=== PATIENT | female | born 1940 ===

== ENCOUNTER 2017-10-12 14:54 | Emergency (ER) | payer MEDICARE, MEDICAID ==
--- NOTE | 2017-10-12 15:34 | ED PDOC ---
Syncope/Near Syncope/Dizziness Time Seen by Provider: 10/12/17 15:02 Chief Complaint (Nursing): Dizziness/Lightheaded Chief Complaint (Provider): Dizzines History Per: Patient History/Exam Limitations: no limitations Onset/Duration Of Symptoms: Days (1 day ago) Current Symptoms Are (Timing): Still Present Additional Complaint(s): 77 y/o female with past medical history of hypertension, brought in by son, presents to the ED complaining of dizziness, onset of 1 day ago. Patient reports of having two episodes where she reports of feeling extremely dizzy and off balance. Patient denies any headache, weakness, chest pain, or shortness of breath. The patient also states that she had faced similar symptoms 3 years ago. Of note, the patient does not drink or smoke. pcp: Vandana Villanueva Past Medical History Reviewed: Historical Data, Nursing Documentation, Vital Signs Vital Signs: Last Vital Signs Temp 97.2 F L 10/12/17 14:57 Pulse 86 10/12/17 14:57 Resp 19 10/12/17 14:57 BP 156/89 H 10/12/17 14:57 Pulse Ox 98 10/12/17 14:57 - Medical History PMH: HTN - Surgical History Surgical History: No Surg Hx - Family History Family History: States: Unknown Family Hx - Living Arrangements Living Arrangements: With Family - Social History Current smoker - smoking cessation education provided: No Alcohol: None Drugs: Denies - Home Medications Home Medications: Ambulatory Orders Medication Instructions Recorded Meclizine [Meclizine*] 25 mg PO Q6 PRN #20 tab 10/12/17 - Allergies Allergies/Adverse Reactions: Allergies Allergy/AdvReac Type Severity Reaction Status Date / Time No Known Allergies Allergy Verified 10/12/17 15:00 Review of Systems ROS Statement: Except As Marked, All Systems Reviewed And Found Negative Constitutional: Negative for: Weakness Cardiovascular: Negative for: Chest Pain Respiratory: Negative for: Shortness of Breath Neurological: Positive for: Dizziness. Negative for: Headache Physical Exam - Reviewed Nursing Documentation Reviewed: Yes Vital Signs Reviewed: Yes - Physical Exam Appears: Positive for: Non-toxic, No Acute Distress Head Exam: Positive for: ATRAUMATIC, NORMOCEPHALIC Skin: Positive for: Normal Color, Warm, Dry Eye Exam: Positive for: Normal appearance, EOMI, PERRL. Negative for: Nystagmus ENT: Positive for: Normal ENT Inspection Neck: Positive for: Normal, Painless ROM Cardiovascular/Chest: Positive for: Regular Rate, Rhythm. Negative for: Murmur Respiratory: Positive for: Normal Breath Sounds. Negative for: Respiratory Distress Gastrointestinal/Abdominal: Positive for: Normal Exam, Soft. Negative for: Tenderness Back: Positive for: Normal Inspection Extremity: Positive for: Normal ROM. 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 Negative for: Motor/Sensory Deficits, Aphasia, Facial Droop - Laboratory Results Result Diagrams: 10/12/17 15:46 10/12/17 15:46 - ECG O2 Sat by Pulse Oximetry: 98 (RA) Pulse Ox Interpretation: Normal - Progress Re-evaluation Time: 17:46 Condition: Improved Medical Decision Making Medical Decision Making: Time: --15:24 Impression: --77 yo female with Vertigo Plan: --Head CT w/o contrast --EKG --Labs --Chest X-ray --Antivert 50mg PO --Glucose, Blood, POC --Orthostatic Blood Pressure --Urinalysis Accession No. : [id number] Patient Name / ID : SHARMILA PERRIN / [id number] Exam Date : 10/12/2017 16:02:04 ( Approved ) Study Comment : Sex / Age : F / 77Y Creator : Jose De Luna MD Dictator : Jose De Luna MD Porcelain Slusher : Flower Grower : Jose De Luna MD Approver2 : Report Date : 10/12/2017 16:55:52 My Comment : PROCEDURE: CT HEAD WITHOUT CONTRAST. HISTORY: Vertigo COMPARISON: None available. TECHNIQUE: Axial computed tomography images were obtained through the head/brain without intravenous contrast. Radiation dose: Total exam DLP = 1249.49 mGy-cm. This CT exam was performed using one or more of the following dose reduction techniques: Automated exposure control, adjustment of the mA and/or kV according to patient size, and/or use of iterative reconstruction technique. FINDINGS: HEMORRHAGE: No intracranial hemorrhage. BRAIN: The lay-white matter differentiation is well preserved. There is no mass effect or definitive edema pattern appreciate including the cortex. There is expansion of the ventriculosulcal and cisternal spaces however in a pattern most compatible with diffuse cerebral atrophy. No suspicious extra-axial fluid collection is identified in the midline brain anatomy appears grossly nonfocal as imaged. VENTRICLES: Unremarkable. No hydrocephalus. CALVARIUM: Unremarkable. PARANASAL SINUSES: Unremarkable as visualized. No significant inflammatory changes. MASTOID AIR CELLS: Unremarkable as visualized. No inflammatory changes. OTHER FINDINGS: None. IMPRESSION: No definite acute intracranial findings by standard CT criteria. Limited diffuse cerebral atrophy appreciated. There is no mass effect or parenchymal edema appreciated. Follow-up CT or MRI may be performed if clinically warranted. --18:04 Provider has given the patient a copy of their EKG report so they may give it to their primary care provider tomorrow. Scribe Attestation: Documented by Domingo Velasquez acting as a scribe for Megan Mcclendon MD. Disposition - Clinical Impression Clinical Impression: Vertigo - Patient ED Disposition Is Patient to be Admitted: No - Disposition Disposition: Routine/Home Disposition Time: 17:47 Condition: IMPROVED Additional Instructions: FOLLOW-UP WITH PMD WITHIN 2 DAYS FOR REEVALUATION. Prescriptions: Meclizine [Meclizine*] 25 mg PO Q6 PRN #20 tab PRN Reason: Dizziness Instructions: Vertigo (ED) Forms: [employer] (Australian) Print Language: MOHAWK
[2017-10-12 15:55] LABS: BASO # 0.1 K/uL (0.0-0.2); BASO % 0.7 % (0.0-2.0); EOS # 0.2 K/uL (0.0-0.7); EOS % 2.6 % (0.0-4.0); HEMATOCRIT 37.6 % (34.0-47.0); LYMPH # 2.6 K/uL (1.0-4.3); LYMPH % 36.5 % (20.0-40.0); MEAN CELL VOLUME 92.2 fl (81.0-99.0); MEAN CORPUSCULAR HEMOGLOBIN 30.4 pg (27.0-31.0); MONO # 0.9 K/uL (0.0-0.8); MONO % 12.5 % (0.0-10.0); NEUT # 3.4 K/uL (1.8-7.0); NEUT % 47.7 % (50.0-75.0); NRBC % 0.1 % (0.0-0.0); RED CELL DISTRIBUTION WIDTH 14.6 % (11.5-14.5); WHITE BLOOD COUNT 7.2 K/uL (4.8-10.8)
[2017-10-12 15:56] LABS: POTASSIUM 3.7 MMOL/L (3.6-5.0)
--- NOTE | 2017-10-12 16:15 | RAD ---
HISTORY: Dizziness COMPARISON: No prior. TECHNIQUE: Chest PA and lateral FINDINGS: LUNGS: No active pulmonary disease. PLEURA: No significant pleural effusion identified. No pneumothorax apparent. CARDIOVASCULAR: Cardiomegaly. No pulmonary vascular derangement identified. OSSEOUS STRUCTURES: No significant abnormalities. VISUALIZED UPPER ABDOMEN: Normal. OTHER FINDINGS: Elevated left hemidiaphragm identified. IMPRESSION: Cardiomegaly. No acute infiltrate. Elevated left hemidiaphragm noted.
[2017-10-12 16:22] LABS: ALB/GLOB RATIO 1.4 (1.0-2.1); BILIRUBIN,TOTAL 0.5 mg/dl (0.2-1.3); CALCIUM 9.6 mg/dL (8.4-10.2); TOTAL PROTEIN 7.3 G/DL (6.3-8.2)
--- NOTE | 2017-10-12 16:57 | CT ---
PROCEDURE: CT HEAD WITHOUT CONTRAST. HISTORY: Vertigo COMPARISON: None available. TECHNIQUE: Axial computed tomography images were obtained through the head/brain without intravenous contrast. Radiation dose: Total exam DLP = 1249.49 mGy-cm. This CT exam was performed using one or more of the following dose reduction techniques: Automated exposure control, adjustment of the mA and/or kV according to patient size, and/or use of iterative reconstruction technique. FINDINGS: HEMORRHAGE: No intracranial hemorrhage. BRAIN: The lay-white matter differentiation is well preserved. There is no mass effect or definitive edema pattern appreciate including the cortex. There is expansion of the ventriculosulcal and cisternal spaces however in a pattern most compatible with diffuse cerebral atrophy. No suspicious extra-axial fluid collection is identified in the midline brain anatomy appears grossly nonfocal as imaged. VENTRICLES: Unremarkable. No hydrocephalus. CALVARIUM: Unremarkable. PARANASAL SINUSES: Unremarkable as visualized. No significant inflammatory changes. MASTOID AIR CELLS: Unremarkable as visualized. No inflammatory changes. OTHER FINDINGS: None. IMPRESSION: No definite acute intracranial findings by standard CT criteria. Limited diffuse cerebral atrophy appreciated. There is no mass effect or parenchymal edema appreciated. Follow-up CT or MRI may be performed if clinically warranted.
[2017-10-12 17:01] LABS: RBC URINE 3 /hpf (0-3); URINE BACTERIA RARE (<OCC); URINE BILIRUBIN NEGATIVE (NEGATIVE); URINE BLOOD NEGATIVE (NEGATIVE); URINE COLOR YELLOW (YELLOW); URINE GLUCOSE (UA) NEG (Normal); URINE KETONE NEGATIVE (NEGATIVE); URINE LEUKOCYTE ESTERASE TRACE Leu/uL (Negative); URINE PROTEIN NEGATIVE (NEGATIVE); URINE UROBILINOGEN 0.2-1.0 mg/dL (0.2-1.0); WBC URINE 5 /hpf (0-5)
[2017-10-12 17:52] VITALS: BP 132/79; PULSE 76; RESP 16; TEMP 98
[2017-10-12 18:08] VITALS: O2SAT 98
--- NOTE | 2017-10-15 12:00 | CARD ---
APPROVED REPORT EKG Measurement Heart [id number] [id number] <Conclusion> Normal sinus rhythm ST & T wave abnormality, consider anterolateral ischemia Abnormal ECG
== END 2017-10-12 18:20 | disposition home or self-care (01) ==
LOC: H.ER 14:54
DX: R42 Dizziness and giddiness (principal); I10 Essential (primary) hypertension

== ENCOUNTER 2017-11-01 10:13 | Emergency (ER) | payer MEDICARE, MEDICAID ==
[2017-11-01 10:36] VITALS: BMI 31.1
--- NOTE | 2017-11-01 11:18 | ED PDOC ---
Syncope/Near Syncope/Dizziness Time Seen by Provider: 11/01/17 10:24 Chief Complaint (Nursing): Dizziness/Lightheaded Chief Complaint (Provider): Vertigo/Fall History Per: Patient Additional Complaint(s): 77 yo female, PMH of Vertigo and HTN, presents to ED with complaints of dtr stated pt. suffered fr. vertigo and she had dizzy spells yesterday and fell onto right side, no Head injury, no LOC. c/o pain to rt. flank and upper quadrant abdomen w/ chest wall tightness . pain aggravated w/ deep breathing/ coughing. denies loc. no bruising noted. Past Medical History Reviewed: Nursing Documentation, Vital Signs Vital Signs: Last Vital Signs Temp 96.0 F L 11/01/17 10:36 Pulse 76 11/01/17 10:36 Resp 16 11/01/17 10:36 BP 151/77 H 11/01/17 10:36 Pulse Ox 100 11/01/17 10:36 - Medical History PMH: HTN - Family History Family History: States: Unknown Family Hx - Living Arrangements Living Arrangements: With Family - Social History Current smoker - smoking cessation education provided: No Alcohol: None Drugs: Denies - Home Medications Home Medications: Ambulatory Orders Medication Instructions Recorded Meclizine [Meclizine*] 25 mg PO Q6 PRN #20 tab 10/12/17 Methylprednisolone [Medrol Dose 4 mg PO DAILY #21 mg 11/01/17 Pack (21 tabs)] - Allergies Allergies/Adverse Reactions: Allergies Allergy/AdvReac Type Severity Reaction Status Date / Time No Known Allergies Allergy Verified 10/12/17 15:00 Review of Systems ROS Statement: Except As Marked, All Systems Reviewed And Found Negative Cardiovascular: Positive for: Chest Pain (wall) Gastrointestinal: Positive for: Abdominal Pain Neurological: Positive for: Dizziness (vertigo) Physical Exam - Reviewed Nursing Documentation Reviewed: Yes Vital Signs Reviewed: Yes - Physical Exam Appears: Positive for: Well, Non-toxic, No Acute Distress Head Exam: Positive for: ATRAUMATIC, NORMAL INSPECTION, NORMOCEPHALIC Skin: Positive for: Normal Color, Warm, DRY Eye Exam: Positive for: EOMI, Normal appearance, PERRL ENT: Positive for: Normal ENT Inspection Neck: Positive for: Normal, Painless ROM Cardiovascular/Chest: Positive for: Regular Rate, Rhythm. Negative for: Chest Non Tender (right chest wall tendenress no edema or ecchymosis, no crepitus) Respiratory: Positive for: Normal Breath Sounds Gastrointestinal/Abdominal: Positive for: Bowel Sounds, Soft, Tenderness (right flank pain and chest wall tendnress ) Back: Positive for: Normal Inspection Extremity: Positive for: Normal ROM Neurologic/Psych: Positive for: Alert, Oriented - Laboratory Results Result Diagrams: 11/01/17 11:20 11/01/17 11:20 - ECG O2 Sat by Pulse Oximetry: 100 Medical Decision Making Medical Decision Making: IV access established and diagnostics ordered Results discussed with Pt who demonstarted full understanding. Pt doing well on re-eval, declined analgesics. Stable for discharge home at this time Disposition - Clinical Impression Clinical Impression: Vertigo, Fall, Contusion - Patient ED Disposition Is Patient to be Admitted: No - Disposition Referrals: Kerry Rubin MD [Primary Care Provider] - Disposition: Routine/Home Disposition Time: 17:07 Condition: STABLE Prescriptions: Methylprednisolone [Medrol Dose Pack (21 tabs)] 4 mg PO DAILY #21 mg Instructions: Vertigo (ED), Fall Prevention (ED) Forms: [facility] [employer] (Lao) Print Language: GREEK
--- NOTE | 2017-11-01 11:49 | RAD ---
HISTORY: chest wall pain COMPARISON: 10/12/2017 FINDINGS: LUNGS: There is poor expiratory effort with crowding at the lung bases. Mild bibasilar subsegmental atelectasis is suspected. Minimal amount of congestion is not excluded. PLEURA: No significant pleural effusion identified, no pneumothorax apparent. CARDIOVASCULAR: Heart and aorta are unchanged given for differences of technique. OSSEOUS STRUCTURES: No significant abnormalities. VISUALIZED UPPER ABDOMEN: Normal. OTHER FINDINGS: None. IMPRESSION: Poor expiratory effort with mild bibasilar crowding. Minimal congestion not excluded. .
[2017-11-01] MEDS ORDERED: Iohexol 300 100 ML IJ ONE (11:54)
[2017-11-01] MEDS ORDERED: Sodium Chloride 0.9% 50 ML IV ONE (11:55)
[2017-11-01 12:19] LABS: BASO # 0.1 K/uL (0.0-0.2); EOS # 0.2 K/uL (0.0-0.7); EOS % 3.6 % (0.0-4.0); HEMOGLOBIN 12.5 g/dL (12.0-16.0); LYMPH % 33.4 % (20.0-40.0); MEAN CELL VOLUME 91.3 fl (81.0-99.0); MEAN CORPUSCULAR HEMOGLOBIN 30.1 pg (27.0-31.0); MONO # 0.6 K/uL (0.0-0.8); MONO % 10.5 % (0.0-10.0); NEUT # 3.2 K/uL (1.8-7.0); NEUT % 51.5 % (50.0-75.0); NRBC % 0.2 % (0.0-0.0); RBC 4.15 Mil/uL (3.80-5.20); RED CELL DISTRIBUTION WIDTH 14.3 % (11.5-14.5); WHITE BLOOD COUNT 6.1 K/uL (4.8-10.8)
[2017-11-01 12:24] LABS: ALB/GLOB RATIO 1.4 (1.0-2.1); ALBUMIN 4.4 g/dL (3.5-5.0); ALT/SGPT 35 U/L (9-52); AST/SGOT 24 U/L (14-36); BLOOD UREA NITROGEN 24 mg/dl (7-17); CALCIUM 9.7 mg/dL (8.4-10.2); GFR AFRICAN-AMERICAN > 60; GFR NON-AFRICAN AMERICAN > 60
[2017-11-01 12:37] LABS: INR 1.1 (0.9-1.2); PARTIAL THROMBOPLASTIN TIME 32.4 Seconds (25.6-37.1); PROTHROMBIN TIME 11.7 Seconds (9.8-13.1)
--- NOTE | 2017-11-01 15:56 | CT ---
PROCEDURE: CT Chest, Abdomen and Pelvis with intravenous contrast HISTORY: pain s/p Fall COMPARISON: None. TECHNIQUE: IV dose administered: 98 cc Omnipaque Radiation dose: Total exam DLP = 2268 mGy-cm. This CT exam was performed using one or more of the following dose reduction techniques: Automated exposure control, adjustment of the mA and/or kV according to patient size, and/or use of iterative reconstruction technique. FINDINGS: CT CHEST WITH CONTRAST: LUNGS: No focal alveolar infiltrate is seen. No pneumothorax is noted. Mild chronic interstitial changes are identified. MEDIASTINUM: Thoracic inlet is unremarkable. No mediastinal or axillary adenopathy is seen. No hilar adenopathy is noted. Aorta is normal in outline without intimal flap. Aorta is mildly uncoiled. No pericardial effusion or pleural effusion is seen. There is mild prominence of the pulmonary arteries which may suggest an element of pulmonary artery hypertension. LYMPH NODES: No adenopathy PLEURA: No pleural effusion. BONES: No appreciable rib fractures. No sternal fracture noted. Scapula and clavicles are grossly intact. Degenerative changes are noted in the spine without compression fracture. OTHER FINDINGS: None. CT ABDOMEN AND PELVIS: LIVER: Liver is fatty infiltrated, without evidence of focal mass or intrahepatic ductal dilatation. There is a tiny sub centimeter probable liver cyst seen in the right lobe of the liver. GALLBLADDER AND BILE DUCTS: Unremarkable. PANCREAS: Unremarkable. No gross lesion or ductal dilatation. SPLEEN: Unremarkable. ADRENALS: There is evidence of a small round left low-density adrenal nodule. This measures 1.5 centimeters in diameter and is most consistent with a small adrenal adenoma. Right adrenal gland is unremarkable. KIDNEYS AND URETERS: Small upper pole right renal cyst is noted. Small parapelvic cysts are seen on the left. No hydronephrosis or perinephric changes are seen. No perinephric hematoma is noted. Ureters are unremarkable and fill appropriately on the delayed images except the distal ureters are not well opacified due to injection timing. VASCULATURE: Unremarkable. No aortic aneurysm. BOWEL: Visualized bowel is unremarkable. No bowel obstruction or bowel dilatation is seen. APPENDIX: Normal appendix. PERITONEUM: No ascites is seen. No mesenteric thickening is noted. No free intraperitoneal air is seen. LYMPH NODES: No appreciable adenopathy in the abdomen or pelvis. BLADDER: Bladder is normal in outline. REPRODUCTIVE: There is an enlarged moderately calcified fibroids seen a along the fundus of the uterus this measures 5.7 centimeters by 5.2 centimeters x 5.4 centimeters. There is some additional low-density appreciated in the left adnexa adjacent to this portion of the uterus which may also represent some low-density fibroids. Ultrasound could be obtained as an outpatient to further evaluate this area as there are no prior studies available for comparison at this institution. No fluid is seen in the pelvis. No right adnexal masses are noted. BONES: There is mild to moderate grade 1 grade 2 spondylolisthesis of L4 over L5. No acute compression fracture in the spine is noted. Degenerative changes are seen elsewhere. Bony pelvis is otherwise intact. OTHER FINDINGS: None. IMPRESSION: No CT scan evidence of internal organ trauma related injury. No appreciable fracture. Grade 1-grade 2 spondylolisthesis of L4 over L5. No pleural effusion or pneumothorax. Mild fatty infiltration of the liver. Small low-density lesion in the left adrenal gland probably representing small adrenal adenoma. There appear to be a number of calcified exophytic fundal fibroids with some additional low density seen along the left aspect of the fibroids and uterus probably representing additional fibroids although ovarian cyst is not excluded. Nonemergent ultrasound as an outpatient would be suggested to further evaluate these regions.
[2017-11-01 16:44] VITALS: BP 132/74; PULSE 89; RESP 19; TEMP 98.2
[2017-11-01 17:03] VITALS: O2SAT 100
--- NOTE | 2017-11-01 18:13 | CARD ---
APPROVED REPORT EKG Measurement Heart [id number] VA [id number] <Conclusion> Normal sinus rhythm Incomplete right bundle branch block ST & T wave abnormality, consider anterolateral ischemia Abnormal ECG
== END 2017-11-01 16:47 | disposition home or self-care (01) ==
LOC: H.ER 10:13 → SUPCPDRO 10:13 → H.ER 16:47
DX: R42 Dizziness and giddiness (principal); S20.219A Contusion of unspecified front wall of thorax, initial encounter; W19.XXXA Unspecified fall, initial encounter; Y92.89 Other specified places as the place of occurrence of the external cause; I10 Essential (primary) hypertension; K76.0 Fatty (change of) liver, not elsewhere classified; M43.16 Spondylolisthesis, lumbar region
CPT/HCPCS: 71045; 71260; 74177; 80053; 84443; 84484; 85025; 85610; 85730; 93005; 99284; Q9967

== ENCOUNTER 2018-04-23 18:31 | Observation (INO) | payer MEDICARE, MEDICAID ==
[2018-04-23 18:32] VITALS: BMI 31.1
[2018-04-23] MEDS ORDERED: Sodium Chloride 0.9% 1,000 ML IV SCH (18:45)
--- NOTE | 2018-04-23 18:51 | ED PDOC ---
HPI:STROKE - Time Time: 18:45 - Historian Historian: Patient, Family, Caregiver (Dr. Haro) - Chief Complaint Chief Complaint: other (facial droop) - Onset Date: 04/23/18 Time: 09:00 - TPA Positive for Contraindication: No Reason tPA is not being Administered: NIH 1 and out of window - Notes: Notes:: Pt. went to Dr. Haro office for routine check up. Family said he randomly gets jerky movements and he noticed left side of the face possibly mildly drooping. On exam he noted left mild sensory deficits so sent to the ER for further evaluation and treatment. No chest pain, dyspnea, weakness, headaches , dizziness. No fever. No trouble walking. No numbness, tingles. Per Dr. Haro, onset not clear and possibly sometime today or earlier. NIHSS Stroke Scale - Date/Time Evaluation Performed Date Performed: 04/23/18 Time Performed: 18:51 When Was NIHSS Performed: Baseline - How Severe is the Stroke Level of Consciousness: 0=Alert LOC to Questions: 0=Both comments correct LOC to commands: 0=Obeys both correctly Best Gaze: 0=Normal Visual: 0=No visual loss Facial: 0=Normal Motor Arm - Left: 0=No drift Motor Arm - Right: 0=No drift Motor Leg - Left: 0=No drift Motor Leg - Right: 0=No drift Limb Ataxia: 0=Absent Sensory: 1=Mild to moderate loss Best Language: 0=No aphasia Dysarthia: 0=Normal articulation Extinction & Inattention (Neglect): 0=Normal, no object Score: 1 rTPA Inclusion/Exclusion - Refusal of Treatment Patient Refused Treatment: No - Inclusion Criteria for Altepase Patient is 18 years or Older: Yes The Clinical Diagnosis of Ischemic Stroke That is Causing a Potentially Disabling Neurological Deficit: No Time of Onset is Well Established to be Less Than 270 Minute Before Treatment Would Begin: No Risk/Benefit Discussed With Patient/Family Member Present: No Past Medical History Reviewed: Nursing Documentation, Vital Signs Vital Signs: Last Vital Signs Temp 97.5 F L 04/23/18 18:37 Pulse 62 04/23/18 18:37 Resp 16 04/23/18 18:37 BP 164/86 H 04/23/18 18:37 Pulse Ox 98 04/23/18 18:37 - Medical History PMH: HTN, Hypercholesterolemia - Family History Family History: States: Unknown Family Hx - Living Arrangements Living Arrangements: With Family - Home Medications Home Medications: Ambulatory Orders Medication Instructions Recorded Meclizine [Meclizine*] 25 mg PO Q6 PRN #20 tab 10/12/17 Methylprednisolone [Medrol Dose 4 mg PO DAILY #21 mg 11/01/17 Pack (21 tabs)] - Allergies Allergies/Adverse Reactions: Allergies Allergy/AdvReac Type Severity Reaction Status Date / Time No Known Allergies Allergy Verified 04/23/18 18:36 Review of Systems ROS Statement: Except As Marked, All Systems Reviewed And Found Negative Physical Exam - Reviewed Nursing Documentation Reviewed: Yes Vital Signs Reviewed: Yes - Physical Exam Appears: Positive for: Non-toxic, No Acute Distress Head Exam: Positive for: ATRAUMATIC, NORMAL INSPECTION, NORMOCEPHALIC Skin: Positive for: Normal Color, Warm, DRY Eye Exam: Positive for: EOMI, Normal appearance, PERRL ENT: Positive for: Normal ENT Inspection Neck: Positive for: Normal, Painless ROM, Supple Cardiovascular/Chest: Positive for: Regular Rate, Rhythm Respiratory: Positive for: CNT, Normal Breath Sounds Gastrointestinal/Abdominal: Positive for: Normal Exam, Soft. Negative for: Tenderness Back: Positive for: Normal Inspection. Negative for: L CVA Tenderness, R CVA Tenderness Extremity: Positive for: Normal ROM. 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 Negative for: Aphasia , Facial Droop - ECG ECG: Positive for: Interpreted By Me, Viewed By Me ECG Rhythm: Positive for: Normal QRS, Sinus Rhythm, ST/T Changes (inverted t waves) O2 Sat by Pulse Oximetry: 98 Pulse Ox Interpretation: Normal - Progress ED Course And Treament: 185: Spoke with Dr. Haro. States pt. not a thrombolytic candidate. Will need ct head and workup. Admit and plavix 300mg with asa 325mg if no bleed. 1954: Dr. Castro to take over care. Fu on labs. Disposition - Clinical Impression Clinical Impression: CVA (cerebral vascular accident) - Patient ED Disposition Is Patient to be Admitted: Transfer of Care - Disposition Disposition Time: 18:57 Condition: FAIR Patient Signed Over To: Linus Castro
--- NOTE | 2018-04-23 18:58 | CT ---
PROCEDURE: CT HEAD WITHOUT CONTRAST. HISTORY: code stroke COMPARISON: Noncontrast head CT 10/12/2017 TECHNIQUE: Axial computed tomography images were obtained through the head/brain without intravenous contrast. Radiation dose: Total exam DLP = 847.25 mGy-cm. This CT exam was performed using one or more of the following dose reduction techniques: Automated exposure control, adjustment of the mA and/or kV according to patient size, and/or use of iterative reconstruction technique. FINDINGS: HEMORRHAGE: No intracranial hemorrhage. BRAIN: The lay-white matter differentiation is well preserved once again. There is interval no mass effect or definitive edema pattern appreciated including the cortex. There is stable, proportional expansion of the ventriculosulcal and cisternal spaces however in a pattern most compatible with diffuse cerebral atrophy. No suspicious extra-axial fluid collection is identified in the midline brain anatomy appears grossly nonfocal as imaged. VENTRICLES: Unremarkable. No hydrocephalus. CALVARIUM: Unremarkable. PARANASAL SINUSES: Unremarkable as visualized. No significant inflammatory changes. MASTOID AIR CELLS: Unremarkable as visualized. No inflammatory changes. OTHER FINDINGS: None. IMPRESSION: Stable limited diffuse atrophy throughout the cerebrum, age appropriate. No intracranial mass effect, hemorrhage or cortical edema identified in the interval. No white matter edema at this time either. Follow-up CT or MRI are available as clinically warranted. Findings discussed with Dr. Bloom with written down and read back verification 04/23/2018 6:55 p.m..
[2018-04-23 19:19] LABS: BASO # 0.1 K/uL (0.0-0.2); BASO % 0.7 % (0.0-2.0); EOS # 0.3 K/uL (0.0-0.7); EOS % 3.3 % (0.0-4.0); HEMOGLOBIN 12.3 g/dL (12.0-16.0); LYMPH # 3.2 K/uL (1.0-4.3); LYMPH % 40.5 % (20.0-40.0); MEAN CORPUSCULAR HEMOGLOBIN 30.1 pg (27.0-31.0); MEAN CORPUSCULAR HGB CONC 32.8 g/dL (33.0-37.0); MEAN PLATELET VOLUME 10.4 fl (7.2-11.7); MONO % 12.4 % (0.0-10.0); NEUT # 3.4 K/uL (1.8-7.0); NEUT % 43.1 % (50.0-75.0); RBC 4.08 Mil/uL (3.80-5.20); RED CELL DISTRIBUTION WIDTH 14.9 % (11.5-14.5); WHITE BLOOD COUNT 7.9 K/uL (4.8-10.8)
[2018-04-23 19:27] LABS: PROTHROMBIN TIME 10.9 Seconds (9.8-13.1)
--- NOTE | 2018-04-23 19:31 | ED PDOC ---
- Laboratory Results Result Diagrams: 04/23/18 19:00 04/23/18 19:00 - ECG O2 Sat by Pulse Oximetry: 98 (RA) Pulse Ox Interpretation: Normal Medical Decision Making Medical Decision Making: -- Patient endorsed to me by Dr. Bloom @ 1900, pending follow up on labs. 1999 Patient re-evaluated at bedside, no major changes. Workup so far negative. Informed family of results. Case discussed with Jose Ramon Rutherford NP who accepts admission for workup for CVA. Scribe Attestation: Documented by Saundra Braga, acting as a scribe for Dr. Linus Castro MD. Provider Scribe Attestation: All medical record entries made by the Scribe were at my direction and personally dictated by me. I have reviewed the chart and agree that the record accurately reflects my personal performance of the history, physical exam, medical decision making, and the department course for this patient. I have also personally directed, reviewed, and agree with the discharge instructions and disposition. Disposition - Clinical Impression Clinical Impression: CVA (cerebral vascular accident) - POA Present On Arrival: None - Disposition Disposition: Hospitalized as Observation Patient Disposition Time: 21:00 Condition: IMPROVED
[2018-04-23 19:34] LABS: ALB/GLOB RATIO 1.4 (1.0-2.1); ALBUMIN 4.6 g/dL (3.5-5.0); ALT/SGPT 23 U/L (9-52); AST/SGOT 26 U/L (14-36); BLOOD UREA NITROGEN 30 mg/dl (7-17); CALCIUM 9.7 mg/dL (8.4-10.2); GFR AFRICAN-AMERICAN 58; GFR NON-AFRICAN AMERICAN 48; HDL CHOLESTEROL 45 MG/DL (30-70)
[2018-04-23 19:45] LABS: LDL CHOLESTEROL 57 mg/dL (0-129)
[2018-04-24 05:31] LABS: BASO # 0.1 K/uL (0.0-0.2); BASO % 0.9 % (0.0-2.0); EOS # 0.3 K/uL (0.0-0.7); EOS % 4.6 % (0.0-4.0); HEMOGLOBIN 11.1 g/dL (12.0-16.0); LYMPH # 2.8 K/uL (1.0-4.3); LYMPH % 45.2 % (20.0-40.0); MEAN CELL VOLUME 92.1 fl (81.0-99.0); MEAN CORPUSCULAR HEMOGLOBIN 30.8 pg (27.0-31.0); MEAN CORPUSCULAR HGB CONC 33.4 g/dL (33.0-37.0); MEAN PLATELET VOLUME 10.2 fl (7.2-11.7); MONO # 0.7 K/uL (0.0-0.8); MONO % 12.1 % (0.0-10.0); NEUT # 2.3 K/uL (1.8-7.0); NEUT % 37.2 % (50.0-75.0); RBC 3.62 Mil/uL (3.80-5.20); RED CELL DISTRIBUTION WIDTH 14.7 % (11.5-14.5); WHITE BLOOD COUNT 6.1 K/uL (4.8-10.8)
[2018-04-24 06:04] LABS: ALB/GLOB RATIO 1.3 (1.0-2.1); ALBUMIN 3.6 g/dL (3.5-5.0); ALT/SGPT 21 U/L (9-52); AST/SGOT 21 U/L (14-36); BLOOD UREA NITROGEN 25 mg/dl (7-17); GFR AFRICAN-AMERICAN > 60; GFR NON-AFRICAN AMERICAN 54
--- NOTE | 2018-04-24 07:31 | RAD ---
HISTORY: Code Stroke COMPARISON: No prior. FINDINGS: LUNGS: No active pulmonary disease. Improved inspiratory volume bilaterally. PLEURA: No significant pleural effusion identified, no pneumothorax apparent. CARDIOVASCULAR: Cardiomegaly is stable. OSSEOUS STRUCTURES: No significant abnormalities. VISUALIZED UPPER ABDOMEN: Normal. OTHER FINDINGS: None. IMPRESSION: No active pulmonary disease. Improved inspiratory volume noted. Stable cardiomegaly.
[2018-04-24] MEDS ORDERED: Pneumococcal 23-Valent Vaccine IM ONE (08:23)
[2018-04-24] MEDS ORDERED: Metoprolol Succinate 50 mg XL Tab PO SCH (09:00)
[2018-04-24] MEDS ORDERED: Metoprolol Succinate 100 mg XL Tab PO SCH ×2 (09:00→11:25)
[2018-04-24] MEDS ORDERED: Potassium Chloride 20 mEq ER Tab PO SCH (09:00)
--- NOTE | 2018-04-24 09:25 | CP.PCM.HP ---
History of Present Illness - History of Present Illness History of Present Illness: pt admitted for dizziness and facial droop. no hoff,cp,sob at present wo complaints amb with steady gait no fcnvd bw and imanging noted case dc with dr ellsworth mri/mra pending nihss 0 Present on Admission - Present on Admission Any Indicators Present on Admission: No Review of Systems - Neurological Neurological: As Per HPI, Dizziness Past Patient History - Infectious Disease Hx of Infectious Diseases: None - Past Medical History & Family History Past Medical History?: Yes - Past Social History Smoking Status: Never Smoked - CARDIAC Hx Cardiac Disorders: Yes Hx Congestive Heart Failure: Yes Hx Hypertension: Yes - NEUROLOGICAL Hx Neurological Disorder: Yes - HEENT Hx HEENT Problems: Yes Other/Comment: s/p eye lid surgery 3yrs ago - MUSCULOSKELETAL/RHEUMATOLOGICAL Hx Musculoskeletal Disorders: Yes Hx Falls: Yes - PSYCHIATRIC Hx Substance Use: No - SURGICAL HISTORY Other/Comment: s/p surgical raise of eyelid - ANESTHESIA Hx Anesthesia: Yes Hx Anesthesia Reactions: No Hx Malignant Hyperthermia: No Has any member of the family had a problem w/ anesthesia?: No Meds Allergies/Adverse Reactions: Allergies Allergy/AdvReac Type Severity Reaction Status Date / Time No Known Allergies Allergy Verified 04/23/18 18:36 Physical Exam - Constitutional Appears: Well, Non-toxic, No Acute Distress - Head Exam Head Exam: ATRAUMATIC, NORMAL INSPECTION, NORMOCEPHALIC - Eye Exam Eye Exam: EOMI, Normal appearance, PERRL Pupil Exam: NORMAL ACCOMODATION, PERRL - ENT Exam ENT Exam: Mucous Membranes Moist, Normal Exam - Neck Exam Neck exam: Positive for: Normal Inspection - Respiratory Exam Respiratory Exam: Clear to Auscultation Bilateral, NORMAL BREATHING PATTERN - Cardiovascular Exam Cardiovascular Exam: REGULAR RHYTHM, RRR, +S1, +S2 - GI/Abdominal Exam GI & Abdominal Exam: Normal Bowel Sounds, Soft. absent: Tenderness - Extremities Exam Extremities exam: Positive for: full ROM, normal capillary refill, normal inspection, pedal pulses present - Back Exam Back exam: NORMAL INSPECTION - Neurological Exam Neurological exam: Alert, CN II-XII Intact, Normal Gait, Oriented x3, Reflexes Normal - Psychiatric Exam Psychiatric exam: Normal Affect, Normal Mood - Skin Skin Exam: Dry, Intact, Normal Color, Warm Results - Vital Signs Recent Vital Signs: Last Vital Signs Temp 97.4 F L 04/24/18 08:32 Pulse 48 L 04/24/18 08:32 Resp 18 04/24/18 08:32 BP 121/76 04/24/18 08:49 Pulse Ox 99 04/24/18 08:32 - Labs Result Diagrams: 04/24/18 05:11 04/24/18 05:11 Labs: Laboratory Results - last 24 hr 04/23/18 04/23/18 04/23/18 19:00 19:00 19:00 WBC 7.9 RBC 4.08 Hgb 12.3 Hct 37.6 MCV 92.0 MCH 30.1 MCHC 32.8 L RDW 14.9 H Plt Count 192 MPV 10.4 Neut % (Auto) 43.1 L Lymph % (Auto) 40.5 H [place] % (Auto) 12.4 H Eos % (Auto) 3.3 Baso % (Auto) 0.7 Neut # (Auto) 3.4 Lymph # (Auto) 3.2 [place] # (Auto) 1.0 H Eos # (Auto) 0.3 Baso # (Auto) 0.1 PT 10.9 INR 1.0 APTT 32.0 Sodium 142 Potassium 4.2 Chloride 106 Carbon Dioxide 22 Anion Gap 18 BUN 30 H Creatinine 1.1 Est GFR ( Amer) 58 Est GFR (Non-Af Amer) 48 Random Glucose 100 Calcium 9.7 Total Bilirubin 0.6 AST 26 ALT 23 Alkaline Phosphatase 49 Troponin I < 0.0120 Total Protein 7.8 Albumin 4.6 Globulin 3.2 Albumin/Globulin Ratio 1.4 Triglycerides 129 Cholesterol 141 LDL Cholesterol Direct 57 HDL Cholesterol 45 Blood Type Antibody Screen BBK History Checked 04/23/18 04/24/18 04/24/18 19:00 05:11 05:11 WBC 6.1 RBC 3.62 L Hgb 11.1 L Hct 33.3 L MCV 92.1 MCH 30.8 MCHC 33.4 RDW 14.7 H Plt Count 162 MPV 10.2 Neut % (Auto) 37.2 L Lymph % (Auto) 45.2 H [place] % (Auto) 12.1 H Eos % (Auto) 4.6 H Baso % (Auto) 0.9 Neut # (Auto) 2.3 Lymph # (Auto) 2.8 [place] # (Auto) 0.7 Eos # (Auto) 0.3 Baso # (Auto) 0.1 PT INR APTT Sodium 142 Potassium 3.7 Chloride 108 H Carbon Dioxide 23 Anion Gap 15 BUN 25 H Creatinine 1.0 Est GFR ( Amer) > 60 Est GFR (Non-Af Amer) 54 Random Glucose 85 Calcium 9.0 Total Bilirubin 0.5 AST 21 ALT 21 Alkaline Phosphatase 32 L D Troponin I Total Protein 6.3 Albumin 3.6 Globulin 2.7 Albumin/Globulin Ratio 1.3 Triglycerides Cholesterol LDL Cholesterol Direct HDL Cholesterol Blood Type O POSITIVE Antibody Screen Negative BBK History Checked No verified bt Assessment & Plan (1) Facial droop Assessment and Plan: r/o tia vs cva, asa/plavix neuro mri/mra ct noted no facial droop at this time Status: Acute (2) Dizziness Assessment and Plan: r/o tia vs cva, asa/plavix neuro mri/mra ct noted no facial droop at this time pt/ot eval amb w/ steady gait at present Status: Acute (3) DVT prophylaxis Assessment and Plan: scd and ae hose asa, plavix Status: Acute - Assessment and Plan (Free Text) Assessment: cont home meds Decision To Admit - Pt Status Changed To: Hospital Disposition Of: Observation - . Bed Request Type: Telemetry Admitting Physician: Letitia Rubin
--- NOTE | 2018-04-24 10:23 | CARD ---
APPROVED REPORT EKG Measurement Heart [id number] <Conclusion> Sinus bradycardia ST & T wave abnormality, consider anterolateral ischemia Abnormal ECG
--- NOTE | 2018-04-24 12:55 | MRI ---
PROCEDURE: MRI BRAIN WITHOUT CONTRAST HISTORY: facial droop COMPARISON: Noncontrast head CT 04/15/2018. TECHNIQUE: Multiplanar, multisequence MR images of the brain were obtained without intravenous contrast enhancement. FINDINGS: HEMORRHAGE: None DWI: No evidence of an acute or early subacute infarction. BRAIN PARENCHYMA: Good corticomedullary differentiation is seen. Proportional, diffuse expansion of the ventriculosulcal and cisternal spaces is appreciated with white matter signal changes compatible with diffuse cerebral atrophy and chronic microangiopathy. No suspicious extra-axial fluid collection is identified and the midline brain anatomy appears grossly nonfocal as imaged. There is no mass effect throughout. An empty sella is identified. VENTRICLES: Unremarkable. No hydrocephalus. CRANIUM: Unremarkable. ORBITS: Grossly unremarkable. PARANASAL SINUSES/MASTOIDS: Clear VASCULAR SYSTEM: Skull base flow voids intact. OTHER FINDINGS: None. IMPRESSION: Mild age-related age-appropriate neuro degenerative change are identified without acute intracranial findings including brain infarction. An empty sella is noted.
--- NOTE | 2018-04-24 13:53 | MRI ---
PROCEDURE: Magnetic Resonance Angiography Brain HISTORY: COMPARISON: None available. TECHNIQUE: 3D time of flight MR angiography of the intracranial arteries was performed. Rotating maximum intensity projection images were generated. FINDINGS: INTERNAL CAROTID ARTERIES: Unremarkable. The skull base, petrous, cavernous and supraclinoid segments are bilaterally widely patient. ANTERIOR CEREBRAL ARTERIES: Unremarkable. A1 and A2 segments are widely patent. Smaller distal branches unremarkable, as visualized. MIDDLE CEREBRAL ARTERIES: Unremarkable. M1 and M2 segments are widely patent. Perisylvian branches grossly symmetric. POSTERIOR CIRCULATION: Basilar Artery: Unremarkable. Distal Vertebral Arteries: The quality of the intracranial MR angiogram particularly for the posterior circulation is not as robust as the distal vertebral artery segments in the cervical MR angiogram which reveals robust bilateral vertebral arteries throughout their entire course. Posterior Cerebral Arteries: Unremarkable. Posterior Inferior Cerebellar Arteries: Unremarkable. ANEURYSM/ VASCULAR MALFORMATIONS: None. OTHER FINDINGS: None. IMPRESSION: No occlusion or significant stenosis in intracranial MR angiography particularly on correlation with neck MRA also performed 04/24/2018.
--- NOTE | 2018-04-24 13:57 | MRI ---
PROCEDURE: MR Angiography of the neck without contrast HISTORY: facial droop COMPARISON: None available. TECHNIQUE: 3D [id number] angiography of the neck was performed. Rotating maximum intensity projection images of the cervical carotid and vertebral arteries were generated. The origins of the common carotid arteries were not visualized, which is a limitation inherent to the non-contrast time of flight technique. FINDINGS: RIGHT CAROTID ARTERIES: Common Carotid Artery: Widely patent throughout with prominent ectasis noted at the proximal half. Carotid Bifurcation: Normal. Internal Carotid Artery:Normal. External Carotid Artery (proximal branches): Normal. LEFT CAROTID ARTERIES: Common Carotid Artery: Widely patent throughout. Moderately ectatic at the proximal segment. Carotid Bifurcation: Limited plaque is identified at the left carotid bulb without significant stenosis resulting. Internal Carotid Artery:Normal. External Carotid Artery (proximal branches): Normal. VERTEBRAL ARTERIES: (based on source images primarily) Right Vertebral Artery: Normal. Left Vertebral Artery: Normal. OTHER FINDINGS: None. IMPRESSION: No significant common or internal carotid artery stenosis in the neck as per standard MR angiography without contrast.
[2018-04-24 16:17] VITALS: BP 121/79; PULSE 59; RESP 20; TEMP 99.1; O2SAT 97
--- NOTE | 2018-04-24 16:23 | CP.PCM.CON ---
History of Present Illness - History of Present Illness History of Present Illness: Mrs. Thanh Johnson is a 78-year-old woman with a past medical history of HTN, who I saw in my office for the first time yesterday for complains of right upper and lower extremity shaking movements. On initial evaluation, I noted a left facial droop and asked the patient's family members if this is new. The daughter said that she noticed it today and that it was new. On further examination, it was revealed that the patient also had left face, arm and leg decreased sensation as compared with the right. At that time, her NIHSS was a 2. I referred her to the ED for neuroimaging and stroke work-up/management. However, when she arrived to the ED, her facial droop was improving and sensation was starting to normalize. MRI of the brain did not show any acute infarct, MRA of the head/neck did not show any significant neurovascular concerns. With her risk factors, she most likely had a TIA. Review of Systems - Review of Systems All systems: reviewed and no additional remarkable complaints except Past Patient History - Infectious Disease Hx of Infectious Diseases: None - Past Medical History & Family History Past Medical History?: Yes - Past Social History Smoking Status: Never Smoked - CARDIAC Hx Cardiac Disorders: Yes Hx Congestive Heart Failure: Yes Hx Hypertension: Yes - NEUROLOGICAL Hx Neurological Disorder: Yes - HEENT Hx HEENT Problems: Yes Other/Comment: s/p eye lid surgery 3yrs ago - MUSCULOSKELETAL/RHEUMATOLOGICAL Hx Musculoskeletal Disorders: Yes Hx Falls: Yes - PSYCHIATRIC Hx Substance Use: No - SURGICAL HISTORY Other/Comment: s/p surgical raise of eyelid - ANESTHESIA Hx Anesthesia: Yes Hx Anesthesia Reactions: No Hx Malignant Hyperthermia: No Has any member of the family had a problem w/ anesthesia?: No Meds Allergies/Adverse Reactions: Allergies Allergy/AdvReac Type Severity Reaction Status Date / Time No Known Allergies Allergy Verified 04/23/18 18:36 - Medications Medications: Current Medications Acetaminophen (Tylenol 325mg Tab) 650 mg PO Q4 PRN PRN Reason: Other Last Admin: 04/24/18 00:25 Dose: 650 mg Aspirin (Aspirin Chewable) 81 mg PO DAILY [facility] Last Admin: 04/24/18 08:50 Dose: 81 mg Clopidogrel Bisulfate (Plavix) 75 mg PO DAILY [facility] Last Admin: 04/24/18 08:49 Dose: 75 mg Fenofibrate (Tricor) 145 mg PO DAILY [facility] Last Admin: 04/24/18 08:49 Dose: 145 mg Furosemide (Lasix) 40 mg PO DAILY [facility] Last Admin: 04/24/18 08:49 Dose: 40 mg Home Med (Raloxifene [Evista]) 60 mg PO DAILY [facility] Sodium Chloride (Sodium Chloride 0.9%) 1,000 mls @ 100 mls/hr IV .Q10H [facility] Last Admin: 04/23/18 19:00 Dose: 100 mls/hr Lisinopril (Zestril) 40 mg PO DAILY [facility] Last Admin: 04/24/18 14:37 Dose: Not Given Meclizine HCl (Antivert) 25 mg PO Q6 PRN PRN Reason: Dizziness Metoprolol Succinate (Toprol Xl) 100 mg PO DAILY [facility] Potassium Chloride (K-Dur 20 Meq Er Tab) 20 meq PO DAILY [facility] Last Admin: 04/24/18 08:49 Dose: 20 meq Physical Exam - Neurological Exam Neurological exam: Alert, CN II-XII Intact, Normal Gait, Oriented x3, Reflexes Normal Additional comments: NIHSS = 0 Results - Vital Signs Recent Vital Signs: Last Vital Signs Temp 97.2 F L 04/24/18 12:18 Pulse 70 04/24/18 13:50 Resp 18 04/24/18 12:18 BP 120/70 04/24/18 13:50 Pulse Ox 99 04/24/18 13:50 - Labs Result Diagrams: 04/24/18 05:11 04/24/18 05:11 Labs: Laboratory Results - last 24 hr 04/23/18 04/23/18 04/23/18 19:00 19:00 19:00 WBC 7.9 RBC 4.08 Hgb 12.3 Hct 37.6 MCV 92.0 MCH 30.1 MCHC 32.8 L RDW 14.9 H Plt Count 192 MPV 10.4 Neut % (Auto) 43.1 L Lymph % (Auto) 40.5 H [place] % (Auto) 12.4 H Eos % (Auto) 3.3 Baso % (Auto) 0.7 Neut # (Auto) 3.4 Lymph # (Auto) 3.2 [place] # (Auto) 1.0 H Eos # (Auto) 0.3 Baso # (Auto) 0.1 PT INR APTT Sodium 142 Potassium 4.2 Chloride 106 Carbon Dioxide 22 Anion Gap 18 BUN 30 H Creatinine 1.1 Est GFR ( Amer) 58 Est GFR (Non-Af Amer) 48 Random Glucose 100 Hemoglobin A1c 5.6 Calcium 9.7 Total Bilirubin 0.6 AST 26 ALT 23 Alkaline Phosphatase 49 Troponin I < 0.0120 Total Protein 7.8 Albumin 4.6 Globulin 3.2 Albumin/Globulin Ratio 1.4 Triglycerides 129 Cholesterol 141 LDL Cholesterol Direct 57 HDL Cholesterol 45 TSH 3rd Generation Blood Type Antibody Screen BBK History Checked 04/23/18 04/23/18 04/24/18 19:00 19:00 05:11 WBC 6.1 RBC 3.62 L Hgb 11.1 L Hct 33.3 L MCV 92.1 MCH 30.8 MCHC 33.4 RDW 14.7 H Plt Count 162 MPV 10.2 Neut % (Auto) 37.2 L Lymph % (Auto) 45.2 H [place] % (Auto) 12.1 H Eos % (Auto) 4.6 H Baso % (Auto) 0.9 Neut # (Auto) 2.3 Lymph # (Auto) 2.8 [place] # (Auto) 0.7 Eos # (Auto) 0.3 Baso # (Auto) 0.1 PT 10.9 INR 1.0 APTT 32.0 Sodium Potassium Chloride Carbon Dioxide Anion Gap BUN Creatinine Est GFR ( Amer) Est GFR (Non-Af Amer) Random Glucose Hemoglobin A1c Calcium Total Bilirubin AST ALT Alkaline Phosphatase Troponin I Total Protein Albumin Globulin Albumin/Globulin Ratio Triglycerides Cholesterol LDL Cholesterol Direct HDL Cholesterol TSH 3rd Generation Blood Type O POSITIVE Antibody Screen Negative BBK History Checked No verified bt 04/24/18 04/24/18 05:11 12:12 WBC RBC Hgb Hct MCV MCH MCHC RDW Plt Count MPV Neut % (Auto) Lymph % (Auto) [place] % (Auto) Eos % (Auto) Baso % (Auto) Neut # (Auto) Lymph # (Auto) [place] # (Auto) Eos # (Auto) Baso # (Auto) PT INR APTT Sodium 142 Potassium 3.7 Chloride 108 H Carbon Dioxide 23 Anion Gap 15 BUN 25 H Creatinine 1.0 Est GFR ( Amer) > 60 Est GFR (Non-Af Amer) 54 Random Glucose 85 Hemoglobin A1c Calcium 9.0 Total Bilirubin 0.5 AST 21 ALT 21 Alkaline Phosphatase 32 L D Troponin I Total Protein 6.3 Albumin 3.6 Globulin 2.7 Albumin/Globulin Ratio 1.3 Triglycerides Cholesterol LDL Cholesterol Direct HDL Cholesterol TSH 3rd Generation 1.92 Blood Type Antibody Screen BBK History Checked Assessment & Plan (1) Transient ischemic attack (TIA) Assessment and Plan: Based on the patient's history and presentation, she most likely had a transient right basal ganglia or thalamic ischemia. I recommend the followin. Telemetry 2. Echocardiogram may be done as outpatient 3. EEG awake and drowsy for 30 minutes to be done as outpatient 4. Aspirin 81 mg daily 5. LDL was low, no need for statin 6. Hydration with 2-3 liters of water daily 7. Check B12, folate, TSH/T3, vitamin D levels, homocysteine levels 8. Follow up with outpatient neurology in 2 weeks. The patient may be discharged home for follow-up. Status: Acute Priority: High
== END 2018-04-24 18:45 | disposition home or self-care (01) ==
LOC: H.ER 18:31 → H.ERHOLD 19:40 → H.TEL 21:57
PROVIDERS: ADMIT Family Medicine; ATTEND Family Medicine
DX: G45.9 Transient cerebral ischemic attack, unspecified (principal); I10 Essential (primary) hypertension; E78.00 Pure hypercholesterolemia, unspecified; Z79.82 Long term (current) use of aspirin
CPT/HCPCS: 36415; 70450; 70544; 70547; 70551; 71045; 80053; 80061; 83036; 84443; 84484; 85025; 85610; 85730; 86850; 86900; 93005; 97110; 97116; 97162; 97166; 97530; 97535; 99285; G0378; G8978; G8979; G8987; G8988; J7030